=== PATIENT | male | born 1950 | race Caucasian/White ===

== ENCOUNTER 2016-03-02 11:36 | Emergency (ER) | payer MEDICARE, OTHER ==
[2016-03-02] MEDS ORDERED: SODIUM CHLORIDE 0.9% 1,000 ML ONE (15:47)
[2016-03-02] MEDS ORDERED: KETOROLAC 30 MG/ML VIAL ONE (15:47)
[2016-03-02] MEDS ORDERED: DILAUDID 1 MG/ML AMP ONE (16:29)
[2016-03-02] MEDS ORDERED: PROPARACAINE 0.5% OP SOLN ONE (16:40)
[2016-03-02] MEDS ORDERED: TIMOLOL 0.5% OP SOLN 5 ML EYE RT SCH (17:10)
== END 2016-03-02 17:43 | disposition other institution (70) ==
LOC: ER 11:36
CPT/HCPCS: 36415 ×2; 70450 ×2; 70486 ×2; 96361 ×2; 96374 ×2; 96375 ×2; 99284; J1170; J1885